=== PATIENT | female | born 1990 | race Caucasian/White ===

== ENCOUNTER 2017-05-24 09:06 | Inpatient (IN) | payer BC, MEDICAID ==
[2017-05-24] MEDS ORDERED: Sodium Citrate/Citric Acid* 15 ML UDC PO ONE (09:58)
[2017-05-24] MEDS ORDERED: ceFOXitin 2 GM IVPREMIX* 2 GM/50 ML BAG IVPB ONE (10:00)
[2017-05-24 10:15] LABS: Hematocrit 35 % (35-47); Hemoglobin 11.5 g/dl (12.0-16.0); Mean Corpuscular HGB Conc 33 g/dl (31-36); Mean Corpuscular Hemoglobin 27 pg (27-31); Mean Corpuscular Volume 82 fL (80-97); Mean Platelet Volume 10 um3 (7.4-10.4); Red Blood Count 4.26 10^6/ul (4.0-5.4); Red Cell Distribution Width 16 % (10.5-15); White Blood Count 12.6 10^3/ul (3.5-10.8)
[2017-05-24 10:30] LABS: Add Diff/Slide Review? Slide Review Added; Comments Flag Yes
[2017-05-24 10:41] LABS: Albumin 3.1 g/dL (3.2-5.2); BUN/Creatinine Ratio 21.8 (8-20); EGFR African American 168.1 (>60); EGFR Non-African American 130.7 (>60); Globulin 3.2 g/dL (2-4); Potassium 4.1 mmol/L (3.5-5.0); Total Bilirubin 0.3 mg/dL (0.2-1.0); Total Protein 6.3 g/dL (6.4-8.9)
[2017-05-24] MEDS ORDERED: Morphine PF AMP (0.5MG/ML)* 5 MG/10 ML AMP ONE (10:44)
[2017-05-24] MEDS ORDERED: Ondansetron INJ* 2 MG/ML VIAL ONE (10:46)
[2017-05-24] MEDS ORDERED: Ketorolac INJ* 30 MG/ML 1 ML VIAL ONE (10:46)
[2017-05-24] MEDS ORDERED: OXYTOCIN* 10 UNITS/ML 1 ML VIAL ONE (10:46)
[2017-05-24] MEDS ORDERED: Naloxone* 0.4 MG/ML 1 ML VIAL IV PRN (11:50)
[2017-05-24] MEDS ORDERED: Ondansetron INJ* 2 MG/ML VIAL IV PRN (11:50)
[2017-05-24] MEDS ORDERED: Acetaminophen TAB* 325 MG PO PRN (11:50)
[2017-05-24] MEDS ORDERED: Nalbuphine* 20 MG/ML 1 ML VIAL IV PRN (11:50)
[2017-05-24] MEDS ORDERED: oxyCODONE TAB* 5 MG TAB PO PRN ×2 (11:50→11:54)
[2017-05-24] MEDS ORDERED: HYDROmorphone* 1 MG/ML 1 ML SYR IV PRN (11:54)
[2017-05-24] MEDS ORDERED: Acetaminophen IV 1GM/100ML * 100 ML IVPB ONE (11:54)
[2017-05-24] MEDS ORDERED: DiMENhydriNATE IV* 50 MG/ML VIAL IV PUSH PRN (11:54)
[2017-05-24] MEDS ORDERED: Glycerin ADULT SUPP PR PRN (12:59)
[2017-05-24] MEDS ORDERED: Dibucaine 1% 28.35 GM TUBE PR PRN (12:59)
[2017-05-24] MEDS ORDERED: Zolpidem TAB* 5 MG PO PRN (12:59)
[2017-05-24] MEDS ORDERED: Ibuprofen TAB* 600 MG PO PRN (12:59)
[2017-05-24] MEDS ORDERED: Witch Hazel PAD* JAR TOPICAL PRN (12:59)
[2017-05-24] MEDS: Ibuprofen TAB* 600 MG PO SCH (18:09)
[2017-05-24] MEDS: Simethicone CHEW TAB* 80 MG PO SCH ×2 (18:10→19:54)
[2017-05-24] MEDS: Docusate CAP* 100 MG PO SCH ×2 (19:54→20:21)
--- NOTE | 2017-05-24 20:25 | CONS ---
CC: Gilberto Delacruz MD * CONSULTATION REPORT: DATE OF CONSULT: 05/24/17 REQUESTING PHYSICIAN: Gilberto Delacruz MD REASON FOR CONSULTATION: Intraperitoneal adhesions. HISTORY OF PRESENT ILLNESS: I was called by Dr. Delacruz, intraoperatively to assess the presence of small bowel adhesions in the patient who is a 27-year- old female undergoing repeat section. After the delivery of the and the closure of the uterus, but prior to closure of the abdomen, there was noted to be a loop of small bowel adherent at the right side of the peritoneal defect. There were numerous other small bowel adhesions present. In order to complete the closure of the abdomen, general surgical consultation was requested in order to perform adhesiolysis and assess the small bowel. OPERATIVE REPORT: The patient was encountered supine in the table. She was awake under regional anesthesia. There was an open wound to a Pfannenstiel incision and she was noted to be severely obese. The inspection of the viscera present within the wound revealed a pink small bowel with no evidence of obvious injury. There was a loop of small bowel adherent to the abdominal wall on the right side of the incision. The peritoneum and fascia were grasped with Stephanie clamps and elevated and then the loop of bowel was freed sharply with Metzenbaum scissors, and once the loop was freed it was carefully inspected. There was possibly a small serosal injury, though no evidence of full-thickness injury and therefore, the site was oversewn with 2 stitches of 3-0 silk, taking seromuscular sutures to oversew the area. The remaining small bowel that was visualized within the wound appeared to be without injury. It was felt that no additional adhesiolysis was needed in order to close the wound and remaining portions of the operation are as dictated in Dr. Delacruz's report. IMPRESSION: Intraperitoneal adhesions with involvement of small bowel. There is no evidence of full-thickness bowel injury. PLAN/RECOMMENDATION: The findings were discussed with the patient and her . No additional surgical followup is required. Thank you for this consultation. [id number]/[facility] #: [id number] JEFF
[2017-05-25] MEDS ORDERED: oxyCODONE/Acetamin 5/325 MG* TAB PO PRN (03:50)
--- NOTE | 2017-05-25 04:53 | OP ---
DATE OF OPERATION: 05/24/17 - ROOM #[id number]-116 DATE OF : 86 SURGEON: Gilberto Delacruz MD ELECTRONIC OPERATOR SURGEON: Farrah Martinez MD ANESTHESIOLOGIST: Jelena Cruz MD ANESTHESIA: Spinal. PRE-OP DIAGNOSES: Intrauterine at 38 completed weeks with BMI of 36, nonreassuring monitoring, and a prior section. POST-OP DIAGNOSES: Intrauterine at 38 completed weeks with BMI of 36 , nonreassuring monitoring, and a prior section along with oligohydramnios and nuchal cord x1. OPERATIVE PROCEDURE: 1. Repeat low transverse section. 2. She also had lysis of bowel adhesions from the patient's abdomen by Dr. [facility]. ESTIMATED BLOOD LOSS: 600 cc. SPECIMENS SENT TO PATHOLOGY: Cord bloods and placenta. FLUIDS: She received 3200 cc of IV crystalloid fluid. URINE OUTPUT: 200 cc of clear urine. FINDINGS: Delivery of a viable female infant weighing 6 pounds 4 ounces with no amniotic fluid noted and a nuchal cord x1, Apgars of 9 and 9. There were bowel and omental adhesions to the mid uterine segment as well as the anterior abdominal wall internally. The uterus was closed in situ. The adnexa were not visualized secondary to adhesions. The bladder was within normal limits. There were no complications. DESCRIPTION OF PROCEDURE: The patient was taken to the operating room where she was identified. She was placed on the operating table where a spinal anesthetic was obtained without difficulty. She was then placed in the supine position with a leftward tilt, prepped and draped in a normal sterile fashion. A Pfannenstiel skin incision was made with a knife and carried through to the underlying layer of fascia. The fascia was nicked in the midline and extended laterally with curved Soto scissors. The fascia was grasped superiorly and inferiorly with Stephanie clamps and dissected off sharply from the rectus muscle. The rectus muscle was in the midline bluntly. Peritoneum was identified, grasped with pickups, entered sharply with Metzenbaum scissors, and extended superiorly and inferiorly sharply. At this time, we noted that there were some adhesions from the omentum to the mid anterior uterine wall. This adhesion was clamped with Yasmin clamp, transected, and suture ligated with 0 Polysorb sutures. There was also bowel noted and omentum noted attached to the omentum bilaterally cephalad to the lower uterine segment. At this point, a low transverse uterine incision was made in the uterus. It was extended laterally with bandage scissors. The amniotic sac was ruptured. There was no fluid noted. The 's head was then grasped and delivered atraumatically. The nose and mouth were suctioned. The cord was clamped and cut. The was handed off to awaiting director of real estate. Cord bloods were obtained. The placenta was removed manually. The uterus was then exteriorized, all clot and debris using moist laparotomy sponges. The uterine incision was then closed using 0 Polysorb suture in a running locked fashion with a second imbricating layer of 0 Polysorb suture with good hemostasis noted. We then proceeded to irrigate the patient's abdomen with normal saline. Irrigation fluid was suctioned. The lower uterine segment was noted to again hemostatic. We then called Dr. Damian Brunson from [facility] to evaluate bowel adhesions and he then proceeded to do lysis of adhesions of the bowel that were attached to the anterior abdominal wall and peritoneum. Once adhesions were freed, we then proceeded to close the peritoneum with 3-0 Polysorb suture in a running fashion. The fascia was closed with 0 Polysorb suture in a running fashion. The skin was closed with a 3-0 Polysorb interrupted sutures of the Ascencion's fascia and skin was closed with 4-0 Monocryl subcuticular stitch. The patient tolerated the procedure well. Sponge, lap, and needle counts were correct x2. She was then transferred to recovery room area in stable condition. [id number]/[facility] #: [id number] [facility]
[2017-05-25] MEDS: Ibuprofen TAB* 600 MG PO SCH ×4 (05:50→18:05)
[2017-05-25 06:28] LABS: Hematocrit 24 % (35-47); Mean Corpuscular HGB Conc 33 g/dl (31-36); Mean Corpuscular Hemoglobin 27 pg (27-31); Mean Corpuscular Volume 82 fL (80-97); Mean Platelet Volume 9 um3 (7.4-10.4); Red Blood Count 2.95 10^6/ul (4.0-5.4); Red Cell Distribution Width 15 % (10.5-15); White Blood Count 8.9 10^3/ul (3.5-10.8)
[2017-05-25] MEDS: Simethicone CHEW TAB* 80 MG PO SCH ×4 (08:33→22:10)
[2017-05-25] MEDS: Ferrous Gluconate TAB* 324 MG TAB PO SCH ×2 (08:33→22:09)
[2017-05-25] MEDS: Docusate CAP* 100 MG PO SCH ×3 (08:33→22:09)
[2017-05-25] MEDS: oxyCODONE/Acetamin 5/325 MG* TAB PO PRN ×2 (09:56→22:09)
[2017-05-26] MEDS: Ibuprofen TAB* 600 MG PO SCH ×4 (00:09→22:08)
[2017-05-26] MEDS: Simethicone CHEW TAB* 80 MG PO SCH ×4 (08:07→20:00)
[2017-05-26] MEDS: Ferrous Gluconate TAB* 324 MG TAB PO SCH ×2 (08:07→20:00)
[2017-05-26] MEDS: Docusate CAP* 100 MG PO SCH ×3 (08:07→20:00)
[2017-05-26] MEDS: Acetaminophen TAB* 325 MG PO PRN ×2 (12:41→20:00)
[2017-05-27] MEDS: oxyCODONE/Acetamin 5/325 MG* TAB PO PRN (01:17)
[2017-05-27 07:56] VITALS: BP 135/67
[2017-05-27] MEDS: Ferrous Gluconate TAB* 324 MG TAB PO SCH (09:05)
[2017-05-27] MEDS: Docusate CAP* 100 MG PO SCH (09:06)
[2017-05-27] MEDS: Simethicone CHEW TAB* 80 MG PO SCH (09:08)
[2017-05-27] MEDS: Ibuprofen TAB* 600 MG PO SCH (09:09)
== END 2017-05-27 10:28 | disposition home or self-care (01) | DRG 540 ==
LOC: MCHOBOUT 09:06 → MCHOB 09:40
PROVIDERS: ADMIT Obstetrics & Gynecology; ATTEND Obstetrics & Gynecology
PROC: 0DNW0ZZ Release Peritoneum, Open Approach (ICD-10-PCS; 2017-05-24)
PROC: 10D00Z1 Extraction of Products of Conception, Low, Open Approach (ICD-10-PCS; principal; 2017-05-24 10:47)
DX: O76 Abnormality in fetal heart rate and rhythm complicating labor and delivery (principal); O41.03X0 Oligohydramnios, third trimester, not applicable or unspecified; O69.81X0 Labor and delivery complicated by cord around neck, without compression, not applicable or unspecified; O99.214 Obesity complicating childbirth; Z68.36 Body mass index [BMI] 36.0-36.9, adult; O99.62 Diseases of the digestive system complicating childbirth; E66.9 Obesity, unspecified; O34.211 Maternal care for low transverse scar from previous cesarean delivery; O13.4 Gestational [pregnancy-induced] hypertension without significant proteinuria, complicating childbirth; K66.0 Peritoneal adhesions (postprocedural) (postinfection); Z3A.38 38 weeks gestation of pregnancy; Z37.0 Single live birth
CPT/HCPCS: 36415; 80053; 84550; 85025; 85610; 85730; 86850; 86900; 86901; 88307; A9270-GY; J0694; J1885; J2405; J2590

== ENCOUNTER 2017-09-24 09:21 | Emergency (ER) | payer BC, MEDICAID, OTHER ==
[2017-09-24 09:47] VITALS: BP 127/67
--- NOTE | 2017-09-24 11:18 | UC ---
Throat Pain/Nasal Kd HPI - HPI Summary HPI Summary: Patient presents with an unremarkable past medical history. She presents today with once day onset complaints of sore throat, and neck pain. She states she is able to speak, swallow, and handle he own secretions. She also complains of intermittent episodes of neck pain, she motions to the back, sides of her neck. She denies any new activity, or injury, and reports "sometimes my neck hurts". She states the pain does not radiate down her arms, and denies any numbness or tingling of her arms. She denies headache. - History of Current Complaint Chief Complaint: UCGeneralIllness Stated Complaint: SORE THROAT Time Seen by Provider: 09/24/17 11:06 Hx Obtained From: Patient Hx Last Menstrual Period: 08/22/17 ?: No Onset/Duration: Gradual Onset, Lasting Days Severity: Mild - Epiglottits Risk Factors Epiglottis Risk Factors: Negative - Allergies/Home Medications Allergies/Adverse Reactions: Allergies Allergy/AdvReac Type Severity Reaction Status Date / Time No Known Allergies Allergy Verified 09/24/17 09:46 Home Medications: Home Medications NK [No Home Medications Reported] 09/24/17 [History Confirmed 09/24/17] PMH/Surg Hx/FS Hx/Imm Hx Previously Healthy: Yes - Surgical History Surgical History: Yes Surgery Procedure, Year, and Place: 2015 - Family History Known Family History: Positive: Hypertension Family History: NON CONTRIBUTORY - Social History Occupation: Employed Full-time Lives: Alone Alcohol Use: None Substance Use Type: None Smoking Status (MU): Never Smoked Tobacco - Immunization History Most Recent Influenza Vaccination: none Most Recent Pneumonia Vaccination: none Review of Systems Constitutional: Negative Skin: Negative Eyes: Negative ENT: Sore Throat Respiratory: Negative Cardiovascular: Negative Gastrointestinal: Negative Genitourinary: Negative Motor: Negative Neurovascular: Negative Musculoskeletal: Other: - neck pain Neurological: Negative Psychological: Negative Is Patient Immunocompromised?: No All Other Systems Reviewed And Are Negative: Yes Physical Exam Triage Information Reviewed: Yes Appearance: Well-Appearing Vital Signs: Initial Vital Signs Temp 97.2 F 09/24/17 09:43 Pulse 99 09/24/17 09:43 Resp 20 09/24/17 09:43 BP 127/67 09/24/17 09:43 Pulse Ox 98 12/23/17 09:43 Vital Signs Reviewed: Yes Eye Exam: Normal ENT Exam: Normal Dental Exam: Normal Neck exam: Normal Neck: Positive: 1 Respiratory Exam: Normal Cardiovascular Exam: Normal Abdominal Exam: Normal Musculoskeletal Exam: Normal Skin Exam: Normal Throat Pain/Nasal Course/Dx - Course Course Of Treatment: Patient presents with an unremarkable past medical history. She has normal vital signs, and presents with a nontoixc appearance. Her rapid strep was negative. And he neck pain was reproducible, with no injury of trauma, I do not feel that radiology reports are indicated. She is neuro- vasc intact. She presents with viral pharyngitis, and I recommend rest, fluids , tylenol, and troat lozengers. Her neck pain I feel is muculoskeletal and I recommend rest, heat, and tylenol. The patient is off work for the next five day to rest and if her symptoms get worse I told her to follow up with her doctor. The patient verbalized understanding and was in agreement with the discharge plan. - Differential Dx/Diagnosis Differential Diagnosis/HQI/PQRI: Pharyngitis, Other - cervical strain Provider Diagnoses: pharyngitis. cervical sttain Discharge - Discharge Plan Condition: Stable Disposition: HOME Patient Education Materials: Cervical Strain (ED), Pharyngitis (ED) Referrals: VENU Martinez [Primary Care Provider] -
== END 2017-09-24 11:40 | disposition home or self-care (01) ==
LOC: UCEAST 09:21
DX: J02.9 Acute pharyngitis, unspecified (principal); S16.1XXA Strain of muscle, fascia and tendon at neck level, initial encounter; X58.XXXA Exposure to other specified factors, initial encounter; Y92.9 Unspecified place or not applicable
CPT/HCPCS: 87651; 99211; G0463

== ENCOUNTER 2017-11-24 18:29 | Emergency (ER) | payer BC ==
[2017-11-24 19:10] VITALS: BP 125/59
--- NOTE | 2017-11-24 20:24 | UC ---
General HPI - HPI Summary HPI Summary: Pt here w/ ST, rhinorrhea, PDN, tickle in throat/clearing throat, laryngitis and increased sensitivity to chemical aerosals. Denies fever, chills, N/V/D, chest pain, SOB, rash or STYLES. Has not tried anything for sx. Daughter has been sick and developed fever yesterday. - History of Current Complaint Chief Complaint: UCGeneralIllness Stated Complaint: SORE THROAT Time Seen by Provider: 11/24/17 20:07 Hx Obtained From: Patient Hx Last Menstrual Period: 11/10/17 Pain Intensity: 4 - Allergy/Home Medications Allergies/Adverse Reactions: Allergies Allergy/AdvReac Type Severity Reaction Status Date / Time No Known Allergies Allergy Verified 11/24/17 19:01 Home Medications: Home Medications Ibuprofen TAB* [Advil TAB*] 400 mg PO Q6H PRN 11/24/17 [History Confirmed ] PMH/Surg Hx/FS Hx/Imm Hx Previously Healthy: Yes - Surgical History Surgical History: Yes Surgery Procedure, Year, and Place: 2015. 2017 - Family History Known Family History: Positive: Hypertension - Social History Occupation: Employed Full-time Lives: With Family Alcohol Use: None Substance Use Type: None Smoking Status (MU): Never Smoked Tobacco - Immunization History Most Recent Influenza Vaccination: none Most Recent Pneumonia Vaccination: none Review of Systems Constitutional: Negative Skin: Negative ENT: Sore Throat, Nasal Discharge Respiratory: Negative, Cough Cardiovascular: Negative Gastrointestinal: Negative Motor: Negative Neurovascular: Negative Musculoskeletal: Negative Neurological: Headache - 2 days ago - not today Is Patient Immunocompromised?: No All Other Systems Reviewed And Are Negative: Yes Physical Exam Triage Information Reviewed: Yes Appearance: Well-Appearing, No Pain Distress, Obese Vital Signs: Initial Vital Signs Temp 98.3 F 11/24/17 19:02 Pulse 80 11/24/17 19:02 Resp 18 11/24/17 19:02 BP 125/59 11/24/17 19:02 Pulse Ox 99 11/24/17 19:02 Vital Signs Reviewed: Yes Eye Exam: Normal Eyes: Positive: Conjunctiva Clear ENT: Positive: Hearing grossly normal, Pharynx normal - cobblestoning, Nasal congestion - PND, TMs normal, Uvula midline. Negative: Tonsillar swelling, Tonsillar exudate, Trismus, Muffled voice, Hoarse voice, Sinus tenderness Dental Exam: Normal Neck exam: Normal Neck: Positive: Supple, Nontender, No Lymphadenopathy Respiratory Exam: Normal Respiratory: Positive: Lungs clear, Normal breath sounds. Negative: Crackles, Rhonchi, Stridor, Wheezing Cardiovascular Exam: Normal Cardiovascular: Positive: RRR, No Murmur Abdominal Exam: Normal Abdomen Description: Positive: Nontender, No Organomegaly, Soft Bowel Sounds: Positive: Present Musculoskeletal Exam: Normal Musculoskeletal: Positive: Strength Intact Neurological Exam: Normal Psychological Exam: Normal Skin Exam: Normal Course/Dx - Course Course Of Treatment: flu and strep neg - Differential Dx - Multi-Symptom Provider Diagnoses: viral URI Discharge - Discharge Plan Condition: Stable Disposition: HOME Patient Education Materials: Upper Respiratory Infection (ED) Referrals: No Primary Care Phys,NOPCP [Primary Care Provider] - [facility] [place] [facility] [Outside] Additional Instructions: Perform nasal wash/netti pot 2 x day with 8 ounces of warm water + 1/4 teaspoon of salt or saline nasal spray as needed for nasal congestion and post nasal drip. You may also try an anti-histamine (ie, zyrtec, etc) Perform throat gargles with warm salt water as needed Drink 60+ ounces of water daily Sleep 8+ hours per night Avoid Dairy and sugar Drink hot herbal/decaf tea with lemon & honey Drink chicken broth (preferably organic, free range chicken) Use a humidifier in your house, but especially near bed at night. You may also keep home temperature at 68F or less. Try a facial steam with or without eucalyptus essential oil or Tavo's vapor rub for decongestion. Cough drops Avoid smoke, candles, perfumes/colonge, air fresheners, scented lotions, etc Consider taking Vitamin D3 5,000iu and Vitamin C 1,000mg every day during illness
== END 2017-11-24 21:12 | disposition home or self-care (01) ==
LOC: UCCORT 18:29
DX: J06.9 Acute upper respiratory infection, unspecified (principal)
CPT/HCPCS: 87502; 87651; 99211; G0463

== ENCOUNTER 2019-08-17 14:01 | Emergency (ER) | payer BC ==
[2019-08-17 14:21] VITALS: BP 144/65
--- NOTE | 2019-08-17 14:52 | UC ---
Complaint Female HPI - HPI Summary HPI Summary: 29 y/o female presents to the urgent care c/o Pt states she has pain in her left lower back for over a week and at first thought it was a muscle strain. Pt states now she thinks it could be an UTI. - History Of Current Complaint Chief Complaint: UCGU Stated Complaint: URINARY Time Seen by Provider: 08/17/19 14:39 Hx Obtained From: Patient Hx Last Menstrual Period: last month Pain Intensity: 0 - Allergies/Home Medications Allergies/Adverse Reactions: Allergies Allergy/AdvReac Type Severity Reaction Status Date / Time No Known Allergies Allergy Verified 08/17/19 14:21 Home Medications: Home Medications Bcp 08/17/19 [History] PMH/Surg Hx/FS Hx/Imm Hx - Surgical History Surgical History: Yes Surgery Procedure, Year, and Place: 2016. 2017 - Family History Known Family History: Positive: Hypertension - Social History Alcohol Use: None Substance Use Type: None Smoking Status (MU): Never Smoked Tobacco - Immunization History Most Recent Influenza Vaccination: none Most Recent Pneumonia Vaccination: none Physical Exam Vital Signs: Initial Vital Signs Temp 97.3 F 08/17/19 14:15 Pulse 74 08/17/19 14:15 Resp 14 08/17/19 14:15 BP 144/65 08/17/19 14:15 Pulse Ox 100 08/17/19 14:15 Complaint Female Dx - Course Course Of Treatment: Vital Signs Reviewed: Yes Appearance: Well-Appearing, Well-Nourished, obese female sitting in the examining table w/o any apparent distress. Eyes: Positive: Conjunctiva Clear - PERRLA, EOMI. ENT: Positive: Normal ENT inspection, Hearing grossly normal, Pharynx normal, TMs normal, Uvula midline Neck: Positive: Supple, Nontender, No Lymphadenopathy Respiratory: Positive: Chest non-tender, Lungs clear, Normal breath sounds, No respiratory distress Cardiovascular: Positive: RRR, No Murmur, Pulses Normal, Brisk Capillary Refill Abdomen Description: Positive: Nontender, No Organomegaly, Soft. Negative: CVA Tenderness (R), CVA Tenderness (L) Bowel Sounds: Positive: Present Musculoskeletal: Positive: Strength Intact, Other: - BACK: Patient walked into the urgent care room with symmetric ambulation, No signs of limping, antalgic, able to bear weight. No signs of trauma, No masses palpated. Point tenderness on the left paraspinal muscle at the level of L5 w/p any swelling,, No CVAT, no flank ecchymosis . No sacroiliac notch tenderness, No saddle anesthesia.ROM: limited due to pain, Straight Leg Raise: negative. Patellar reflexes: brisk, symmetric Muscle strength lower extremities. Dorsiflexion/ plantar flexion of ankles. Heel/ toe walk. Lower extremities: Femoral, popliteal, posterior tibial , and dorsalis pedis pulses WNL. Pt refuse rectal exam Neurological: Positive: Alert, Muscle Tone Normal Psychological Exam: Normal Skin Exam: Normal - Differential Dx/Diagnosis Differential Diagnosis/HQI/PQRI: Cervicitis, Renal Colic, Ureteral Stone, Urinary Tract Infection, Other - low back strain, muscle spasm Provider Diagnosis: Low back strain, Muscle spasm, Elevated BP without diagnosis of hypertension Discharge ED - Sign-Out/Discharge Documenting (check all that apply): Patient Departure - D/C home All imaging exams completed and their final reports reviewed: No Studies - Discharge Plan Condition: Stable Disposition: HOME Prescriptions: Cyclobenzaprine TAB* [Flexeril 10 MG TAB*] 10 mg PO TID PRN #21 tab PRN Reason: Spasms - Muscle Ibuprofen TAB* [Motrin TAB* 600 MG] 600 mg PO Q6H PRN #30 tab PRN Reason: moderate back pain Patient Education Materials: Low Back Strain (ED), Muscle Spasm (ED) Referrals: [facility] [place] [facility] [place]] - 1 Week El Scott MD [Medical Doctor] - If Needed Additional Instructions: 1- Please take Ibuprofen PO q6-8hrs prn as directed after meals for pain. 2- Take Flexeril PO as directed for muscle spasm. Please do not drive while taking the medication. 3- Wear a back support. Avoid strenuous exercise of heavy lifting. 4- Please follow up with Orthopedic Dr from Sports Medicine or your PCP if not improvement of symptoms for further management. 5- Your hematuria may be due to your menstrual cycle 6- Your BP is elevated today. please decrease salt in your diet, monitor BP and if it continues to be elevated please f/u with your PCP for further management. - Billing Disposition and Condition Condition: STABLE Disposition: Home
== END 2019-08-17 15:43 | disposition home or self-care (01) ==
LOC: UCCORT 14:01
DX: S39.012A Strain of muscle, fascia and tendon of lower back, initial encounter (principal); E66.9 Obesity, unspecified; M62.830 Muscle spasm of back; R03.0 Elevated blood-pressure reading, without diagnosis of hypertension; X58.XXXA Exposure to other specified factors, initial encounter; Y92.9 Unspecified place or not applicable
CPT/HCPCS: 81003; 99212; G0463

== ENCOUNTER 2019-11-06 19:35 | Emergency (ER) | payer BC ==
[2019-11-06 20:00] VITALS: BP 119/76
--- NOTE | 2019-11-06 20:41 | UC ---
Eye Complaint HPI - HPI Summary HPI Summary: 29-year-old female presents with onset of right eye redness today. State has noticed some redness starting to the left eye as well. Was sent for evaluation by her employer. 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 Denies fever, chills, URI symptoms, eye pain, eye itching, photophobia, visual disturbances, tearing, or drainage. - History of Current Complaint Chief Complaint: UCGeneralIllness Stated Complaint: EYE COMPLAINT Time Seen by Provider: 11/06/19 20:23 Hx Obtained From: Patient Hx Last Menstrual Period: 10/07/19 Pain Intensity: 0 - Allergies/Home Medications Allergies/Adverse Reactions: Allergies Allergy/AdvReac Type Severity Reaction Status Date / Time No Known Allergies Allergy Verified 11/06/19 19:55 PMH/Surg Hx/FS Hx/Imm Hx Previously Healthy: Yes - denies significant past medical history - Surgical History Surgical History: Yes Surgery Procedure, Year, and Place: 2015. 2017 - Family History Known Family History: Positive: Hypertension - Social History Occupation: Employed Full-time Lives: With Family Alcohol Use: None Substance Use Type: None Smoking Status (MU): Never Smoked Tobacco - Immunization History Most Recent Influenza Vaccination: none Most Recent Pneumonia Vaccination: none Review of Systems All Other Systems Reviewed And Are Negative: Yes Constitutional: Negative: Fever, Chills Eyes: Positive: Eye Redness. Negative: Blurred Vision, Diplopia, Drainage, Photophobia ENT: Negative: Sore Throat, Ear Ache, Nasal Discharge, Sinus Congestion, Sinus Pain/Tenderness Respiratory: Negative: Cough Cardiovascular: Positive: Negative Gastrointestinal: Positive: Negative Genitourinary: Positive: Negative Musculoskeletal: Positive: Negative Neurological: Positive: Negative Is Patient Immunocompromised?: No Physical Exam - Summary Physical Exam Summary: GENERAL APPEARANCE: Well developed, well nourished, alert and cooperative, and appears to be in no acute distress. EYES: Bilateral conjunctival erythema with right worse than left. No drainage or FB noted. PERRL, EOM intact. Vision is grossly intact. EARS: External auditory canals and tympanic membranes clear, hearing grossly intact. NOSE: No nasal discharge. THROAT: Pharynx normal. No tonsilar inflammation, swelling, exudate, or lesions. Uvula midline. NECK: Neck supple, non-tender without lymphadenopathy. CARDIAC: Normal S1 and S2. No S3, S4 or murmurs. Rhythm is regular. There is no peripheral edema, cyanosis or pallor. Extremities are warm and well perfused. Capillary refill is less than 2 seconds. Peripheral pulses intact. LUNGS: Clear to auscultation without rales, rhonchi, wheezing or diminished breath sounds. ABDOMEN: Positive bowel sounds. Soft, nondistended, nontender. No guarding or rebound. No masses or hepatosplenomegally. MUSKULOSKELETAL: ROM intact to all extremities. No joint erythema or tenderness. Normal muscular development. Normal gait. SKIN: Skin normal color, texture and turgor with no lesions or eruptions. Triage Information Reviewed: Yes Vital Signs: Initial Vital Signs Temp 97.5 F 11/06/19 19:56 Pulse 80 11/06/19 19:56 Resp 17 11/06/19 19:56 BP 119/76 11/06/19 19:56 Pulse Ox 100 11/06/19 19:56 Vital Signs Reviewed: Yes Eye Complaint Course/Dx - Course Course Of Treatment: 29-year-old female presents with onset of right eye redness today. State has noticed some redness starting to the left eye as well. Was sent for evaluation by her employer. 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 Denies fever, chills, URI symptoms, eye pain, eye itching, photophobia, visual disturbances, tearing, or drainage. Afebrile. Vital signs stable. Patient had bilateral conjunctival erythema with right worse than left. There was no drainage or FB noted. PERRL, EOM intact. Vision was grossly intact. Remainder of exam was unremarkable. Discussed with patient I suspect that she has an allergic conjunctivitis and recommending treatment with ketotifen ophthalmic drops 1 drop twice a day into the affected eye(s). She is to follow-up with her primary care provider in 3 days if symptoms are not improving. Anticipatory guidance and warning symptoms reviewed with the patient. Verbalizes understanding and agrees with plan of care. - Differential Dx/Diagnosis Differential Diagnosis/HQI/PQRI: Conjunctivitis, Corneal Abrasion, Foreign Body , Periorbital Cellulitis, Orbital Cellulitis Provider Diagnosis: Allergic conjunctivitis Discharge ED - Sign-Out/Discharge Documenting (check all that apply): Patient Departure All imaging exams completed and their final reports reviewed: No Studies - Discharge Plan Condition: Stable Disposition: HOME Prescriptions: Ketotifen Fumarate [Allergy Eye Drops] 10 ml OP BID #1 drops Patient Education Materials: Conjunctivitis (ED) Referrals: Chetan Paul PA [Primary Care Provider] - 3 Days (If no improvement.) Additional Instructions: Your symptoms appear to be caused by an allergic conjunctivitis. This is not contagious. Use ketotifen ophthalmic drops. Instill 1 drop into the affected eye(s) twice a day as needed for eye redness or itching. Follow up with your primary care provider in 3 days if no improvement in symptoms. Seek immediate medical attention if you develop severe eye pain, visual disturbances, purulent eye drainage, swelling of the eye, or any worsening of symptoms. - Billing Disposition and Condition Condition: STABLE Disposition: Home
== END 2019-11-06 20:58 | disposition home or self-care (01) ==
LOC: UCCORT 19:35
DX: H10.13 Acute atopic conjunctivitis, bilateral (principal)
CPT/HCPCS: 99212; G0463